=== PATIENT | female | born 1970 | race Caucasian/White ===

== ENCOUNTER → 2017-01-20 19:43 | Outpatient (CLI) | payer MEDICAID, BC ==
[2014-09-25 08:54] VITALS: BMI 23.8
[~2017-01-20 19:43] MED LIST: ALDACTONE100 MG PO; CYMBALTA60 MG PO; FORTAMET500 MG/BOT PO; HYDROCODONE-APA1 TAB PO; KEFLEX500 MG PO; MELATONIN 10 M1 EACH PO; MOBIC7.5 MG PO; NEURONTIN 300300 MG PO; PROMETRIUM200 MG PO; VOLTAREN75 MG PO; XANAX1 MG PO
== END | disposition home or self-care (01) ==
LOC: D.LABREF 19:43
DX: N64.52 Nipple discharge (principal); Z85.3 Personal history of malignant neoplasm of breast

== ENCOUNTER → 2017-02-11 09:44 | Outpatient (CLI) | payer MEDICAID, BC ==
[2014-09-25 08:54] VITALS: BMI 23.8
== END | disposition home or self-care (01) ==
LOC: D.US 02-08 09:30
DX: C50.111 Malignant neoplasm of central portion of right female breast (principal)

== ENCOUNTER → 2017-02-19 07:28 | Outpatient (CLI) | payer MEDICAID, BC ==
[2014-09-25 08:54] VITALS: BMI 23.8
== END | disposition home or self-care (01) ==
LOC: D.NM 02-12 10:00
DX: C50.111 Malignant neoplasm of central portion of right female breast (principal)

== ENCOUNTER 2017-03-23 05:15 | Day surgery (SDC) | payer MEDICAID, BC ==
[~2017-03-23] VITALS: Ht 157.5 cm; Wt 61.2 kg
[2017-03-23 06:26] LABS: BASOPHILS 0.3 % (0-2); EOSINOPHILS 1.2 % (0-7); HEMATOCRIT 39.7 % (36.0-48.0); HEMOGLOBIN 13.1 g/dL (12-16); IMMATURE GRANULOCYTES 0.2 % (0-5); LYMPHOCYTES 25.1 % (15-50); MCH 32.3 pg (26.0-34.0); MCV 97.8 fL (80.0-100.0); MEAN PLATELET VOLUME 10.1 fL (7.4-10.4); MONOCYTES 6.2 % (2-11); PLATELET COUNT 240 10x3/uL (130-400); RBC 4.06 10x6/uL (4.00-5.40); WBC 5.8 10x3/uL (4.8-10.8)
[2017-03-23 06:47] LABS: CALC OSMOLALITY 281 mosm/kg (275-300); CALCIUM 8.7 mg/dL (8.5-10.1); CARBON DIOXIDE 25.7 mmol/L (21.0-32.0); CHLORIDE - SERUM 107 mmol/L (98-107); CREATININE - SERUM 0.6 mg/dL (0.6-1.3); GLUCOSE 106 mg/dL (74-106); POTASSIUM - SERUM 3.7 mmol/L (3.5-5.1); SODIUM 141 mmol/L (136-145); UREA NITROGEN 15 mg/dL (7-18); eGFR NON AFRICAN AMERICAN > 90 mL/min (90-120)
[2017-03-23 06:51] LABS: INR 0.97 (0.85-1.17); PROTIME 12.7 SECONDS (11.6-15.0)
[2017-03-23 06:52] VITALS: BP 138/83; Ht 157.5 cm; Wt 61.2 kg
[2017-03-23 06:52] LABS: APTT 29.1 SECONDS (22.8-39.4)
[2017-03-23] MEDS ORDERED: HYDROCODONE-APA1 TAB PO (11:03)
--- NOTE | 2017-03-23 12:16 | NUR ---
1200 NORCO 10MG PO GIVEN FOR C/O 09/07. MULTIPLE FRIENDS AND FAMILY AT BEDSIDE. HOB ELEVATED. DENIES NAUSEA.
--- NOTE | 2017-03-30 14:51 | OP ---
PATIENT NAME: NICOLE ANDREW MEDICAL RECORD: [id number] :69 LOCATION:[facility] ADMISSION DATE: SURGEON: CARLOS NERI MD DATE OF OPERATION: 03/23/2017 PREOPERATIVE DIAGNOSES: 1. Paget disease of the right nipple. 2. History of ductal carcinoma in situ of the right breast. 3. Tobacco dependent syndrome. 4. Gastroesophageal reflux disease. 5. Diabetes mellitus. 6. Fibromyalgia. POSTOPERATIVE DIAGNOSES: 1. Paget disease of the right nipple. 2. History of ductal carcinoma in situ of the right breast. 3. Tobacco dependent syndrome. 4. Gastroesophageal reflux disease. 5. Diabetes mellitus. 6. Fibromyalgia. PROCEDURE: 1. Right partial mastectomy. 2. Right axillary sentinel lymph node biopsy. SURGEON: Carlos Neri MD REPORT OF PROCEDURE: The patient underwent lymphoscintigraphy preoperatively. The right breast and axilla were prepped and draped in sterile fashion. The skin incision was made in the right axilla and the electrocautery was used to dissect through the subcutaneous tissue into the axillary space. A Neoprobe was used to find the sentinel lymph node. We found a collection of 2-3 lymph nodes that were clumped together with the highest reading in any of these being 67. These 3 lymph nodes were removed and sent off for permanent specimen. Any bleeding that was in the area was treated with electrocautery or with free ties. At the end of this portion of the procedure, there was no sign of any active bleeding. The subcutaneous tissues were irrigated out and then the fascial edges were reapproximated with interrupted 3-0 Vicryls. The skin was closed with running subcutaneous 5-0 Monocryl. We then approached the patient's right breast. The patient had a history of a right nipple sparing simple mastectomy with reconstruction with a submuscular implant. An ovoid incision was made around the patient's nipple areolar complex in a transverse direction. The subcutaneous tissues were transected using electrocautery. We came underneath the tissue overlying the muscle. There was some thin scar tissue between the muscle layers and we got through this layer in 1 small portion and then there was a spillage of some gelatinous type fluid. I could see through this material and could see the implant and I did not see any evidence of injury to the implant itself and this dissection had been done completely with electrocautery. I went ahead and just irrigated out the space and reapproximated the overlying tissue using interrupted 3-0 Vicryls. The subcutaneous tissues were then reapproximated with interrupted 3-0 Vicryls and the skin was closed with running subcutaneous 5-0 Monocryl. The nipple areolar complex had been sent off for frozen specimen and the margins were noted to be negative for tumor. The wounds were then dressed appropriately. OPERATIVE REPORT [id number] NICOLE ANDREW COMPLICATIONS: None. CONDITION: Stable. ANESTHESIA: General endotracheal. BLOOD LOSS: 30 mL. TRANSINT:[id number] Voice Confirmation ID: [id number] DOCUMENT ID: [id number] CARLOS NERI MD at 1451 CC: BELKIS OCASIO MD and JANIS JHAVERI MD [id number] DICTATION DATE: 03/23/17 1110 HOTEL FRONT DESK AGENT: 03/23/17 1718 [facility] 03/23/17 [id number] [place] [address]
== END 2017-03-23 13:40 | disposition home or self-care (01) ==
LOC: D.OPS 05:15 → D.PAN 07:30 → D.OPS 13:40
PROVIDERS: Anesthesiology; Surgery
DX: C50.011 Malignant neoplasm of nipple and areola, right female breast (principal); D05.11 Intraductal carcinoma in situ of right breast; F17.200 Nicotine dependence, unspecified, uncomplicated; K21.9 Gastro-esophageal reflux disease without esophagitis; E11.9 Type 2 diabetes mellitus without complications; M79.7 Fibromyalgia; D24.1 Benign neoplasm of right breast

== ENCOUNTER → 2017-07-15 15:20 | Outpatient (CLI) | payer MEDICAID, BC ==
[2017-03-23 06:52] VITALS: BMI 24.7
== END | disposition home or self-care (01) ==
LOC: D.LABREF 15:20
DX: C50.011 Malignant neoplasm of nipple and areola, right female breast (principal); N64.4 Mastodynia

== ENCOUNTER → 2018-02-10 07:36 | Outpatient (CLI) | payer MEDICAID, BC ==
[2017-03-23 06:52] VITALS: BMI 24.7
[~2018-02-10 07:36] MED LIST changes: +ATIVAN0.5 MG PO; +LIPITOR10 MG PO; +TEMAZEPAM30 MG PO; +ZESTRIL10 MG PO; +ZOLOFT50 MG PO
== END | disposition home or self-care (01) ==
LOC: D.US 07:36
DX: C50.019 Malignant neoplasm of nipple and areola, unspecified female breast (principal)

== ENCOUNTER → 2018-02-17 12:11 | Outpatient (CLI) | payer MEDICAID, BC ==
[2017-03-23 06:52] VITALS: BMI 24.7
== END | disposition home or self-care (01) ==
LOC: D.CT 12:11
DX: N63.11 Unspecified lump in the right breast, upper outer quadrant (principal); Z85.3 Personal history of malignant neoplasm of breast; R93.8 Abnormal findings on diagnostic imaging of other specified body structures

== ENCOUNTER 2018-04-12 10:30 | Day surgery (SDC) | payer MEDICARE, MEDICAID ==
[2018-04-11 15:05] LABS: BASOPHILS 0.2 % (0-2); HEMATOCRIT 38.1 % (36.0-48.0); HEMOGLOBIN 12.9 g/dL (12-16); IMMATURE GRANULOCYTES 0.1 % (0-5); LYMPHOCYTES 31.6 % (15-50); MCH 31.9 pg (26.0-34.0); MCHC 33.9 g/dL (31.0-37.0); MCV 94.1 fL (80.0-100.0); MEAN PLATELET VOLUME 9.8 fL (7.4-10.4); MONOCYTES 6.2 % (2-11); NEUTROPHILS 60.9 % (40-80); PLATELET COUNT 252 10x3/uL (130-400); RBC 4.05 10x6/uL (4.00-5.40); RDW 12.4 % (11.5-14.5); WBC 9.4 10x3/uL (4.8-10.8)
[2018-04-11 15:11] LABS: INR 0.98 (0.85-1.17); PROTIME 12.6 SECONDS (11.6-15.0)
[2018-04-11 15:12] LABS: APTT 29.1 SECONDS (22.8-39.4)
[2018-04-11 15:15] LABS: CALC OSMOLALITY 271 mosm/kg (275-300); CALCIUM 8.9 mg/dL (8.5-10.1); CARBON DIOXIDE 26.2 mmol/L (21.0-32.0); CHLORIDE - SERUM 100 mmol/L (98-107); CREATININE - SERUM 0.7 mg/dL (0.6-1.3); GLUCOSE 100 mg/dL (74-106); POTASSIUM - SERUM 3.7 mmol/L (3.5-5.1); SODIUM 136 mmol/L (136-145); UREA NITROGEN 12 mg/dL (7-18); eGFR NON AFRICAN AMERICAN > 90 mL/min (90-120)
[~2018-04-12] VITALS: Ht 157.5 cm; Wt 69.4 kg
--- NOTE | ~2018-04-12 | OP ---
PATIENT NAME: NICOLE ANDREW MEDICAL RECORD: [id number] :69 LOCATION:[facility] ADMISSION DATE: SURGEON: CARLOS NERI MD DATE OF OPERATION: 04/12/2018 PREOPERATIVE DIAGNOSES: 1. History of bilateral mastectomies. 2. History of right breast cancer and right breast Paget's disease. 3. Diabetes mellitus. 4. Tobacco dependence. 5. Left nipple pain. POSTOPERATIVE DIAGNOSES: 1. History of bilateral mastectomies. 2. History of right breast cancer and right breast Paget's disease. 3. Diabetes mellitus. 4. Tobacco dependence. 5. Left nipple pain. PROCEDURE: Completion of left breast mastectomy. SURGEON: Carlos Neri MD REPORT OF PROCEDURE: The patient's left breast was prepped and draped in sterile fashion. The patient had had a previous nipple-sparing mastectomy with immediate reconstruction. An ovoid incision was made around the patient's nipple areolar complex. Electrocautery was used to dissect through the subcutaneous tissues down to the sheath overlying the patient's implant. Once we encountered the sheath and we unroofed the breast tissue off of the implant and marked it appropriately. This was sent off for permanent specimen. We then undermined the tissue in all directions and irrigated out the wound with normal saline. The subcutaneous tissues were reapproximated with interrupted 3-0 Vicryls and the skin was closed with yeimy. COMPLICATIONS: None. CONDITION: Stable. ANESTHESIA: General endotracheal. BLOOD LOSS: Minimal. TRANSINT:[id number] Voice Confirmation ID: [id number] DOCUMENT ID: [id number] CARLOS NEIR MD at 1031 CC: BELKIS OCASIO [id number] DICTATION DATE: 04/12/18 1354 REGISTERED NURSE HH CASE MANAGER: 04/12/18 1412 [facility] 04/12/18 [place] [id number] [place] [id number]
[2018-04-12 11:08] VITALS: BP 128/75; Ht 157.5 cm; Wt 69.4 kg
[2018-04-12] MEDS ORDERED: HYDROCODONE-APA1 TAB PO (13:49)
== END 2018-04-12 16:10 | disposition home or self-care (01) ==
LOC: D.SDCHOLD 10:30 → D.OPS 10:30 → D.SDCHOLD 12:45 → EDSTATUS 12:45 → D.SDCHOLD 16:10 → D.OPS 16:10
PROVIDERS: Anesthesiology
DX: C50.011 Malignant neoplasm of nipple and areola, right female breast (principal); Z85.3 Personal history of malignant neoplasm of breast; E11.9 Type 2 diabetes mellitus without complications; F17.200 Nicotine dependence, unspecified, uncomplicated

== ENCOUNTER → 2018-07-08 11:00 | Outpatient (CLI) | payer MEDICAID, MEDICARE ==
[2018-04-12 11:08] VITALS: BMI 28.0
== END | disposition home or self-care (01) ==
LOC: D.MRI 11:00
DX: M54.16 Radiculopathy, lumbar region (principal)

== ENCOUNTER → 2019-03-08 18:01 | Outpatient (CLI) | payer MEDICARE ==
[~2019-03-08 18:01] MED LIST changes: +ULTRAM50 MG PO; +ZOLOFT100 MG; -ZOLOFT50 MG PO
== END | disposition home or self-care (01) ==
LOC: D.LABREF 18:01
DX: N20.0 Calculus of kidney (principal)

== ENCOUNTER 2019-03-09 06:04 | Day surgery (SDC) | payer MEDICARE ==
[~2019-03-09] VITALS: Ht 157.5 cm; Wt 61.7 kg
[~2019-03-09 06:04] MED LIST changes: -ULTRAM50 MG PO
[2019-03-09 06:53] LABS: BASOPHILS 0.3 % (0-2); EOSINOPHILS 2.2 % (0-7); HEMATOCRIT 39.9 % (36.0-48.0); HEMOGLOBIN 13.3 g/dL (12-16); IMMATURE GRANULOCYTES 0.2 % (0-5); LYMPHOCYTES 23.3 % (15-50); MCH 32.1 pg (26.0-34.0); MCHC 33.3 g/dL (31.0-37.0); MCV 96.4 fL (80.0-100.0); MONOCYTES 4.3 % (2-11); NEUTROPHILS 69.7 % (40-80); PLATELET COUNT 268 10x3/uL (130-400); RBC 4.14 10x6/uL (4.00-5.40); RDW 13.6 % (11.5-14.5); WBC 8.8 10x3/uL (4.8-10.8)
[2019-03-09] MEDS ORDERED: ULTRAM50 MG PO (07:22)
[2019-03-09 07:43] VITALS: BP 139/85; Ht 157.5 cm; Wt 61.7 kg
--- NOTE | 2019-03-09 13:44 | OP ---
PATIENT NAME: NICOLE ANDREW MEDICAL RECORD: [id number] :69 LOCATION:D.OPS ADMISSION DATE: SURGEON: PK GUPTA MD DATE OF OPERATION: 03/09/2019 SURGEON: Pk Gupta MD ANESTHESIA: TIVA by Brant Corona CRNA. DIAGNOSIS: History of a right 5-mm ureteral stone. PROCEDURES: Cystoscopy, right retrograde pyelogram, right ureteroscopy, right ureteral stent insertion 6-Croatian x 22 cm with string attached. FINDINGS: No radiodense stone seen on fluoroscopy. Right hydroureteronephrosis to a point in the ureter overlying the sacrum. No stone seen on ureteroscopy. On cystoscopy, there were single ureteral orifices with no bladder tumors seen. The patient also has a grade II cystocele. BLOOD LOSS: None. SPECIMENS: None. CLINICAL HISTORY: This is a 48-year-old female with a previous history of kidney stones. She had a CT scan done recently for acute right-sided flank pain with nausea and vomiting. CT scan showed a 5-mm right distal ureteral stone. When she saw me in the office yesterday, she continued to have pain in the right flank even though it had been [address] scan had been done. Therefore, I scheduled her to have the stone removed by ureteroscopy. SHE IS ALLERGIC TO MORPHINE, SULFA AND ADHESIVE TAPE. She was given [employer] strategic solutions consultant to the OR today. Prior to the procedure, I had her obtain a KUB. I did not see any radiodense stones in the course of the ureter on the KUB, however, she continued to have pain and therefore I decided to proceed. We would first do a retrograde pyelogram and see if I can find a filling defect. DESCRIPTION OF PROCEDURE: The patient was given IV sedation. She was then placed into dorsal lithotomy position and prepped and draped. Cystoscopy found no bladder tumors. The right ureteral orifice was entered into with a cone tip catheter. Diluted contrast was injected for retrograde pyelogram on the right side. The right proximal ureter is hydronephrotic to the junction between the mid and distal one-third of the ureter. This was in the region overlying the mid sacrum. Here, the caliber of the ureter suddenly changed from hydronephrotic to normal. I did not see an obvious stone here, but I did have to investigate this area, which may just represent tissue edema. Through the lumen of the cone tip catheter, we inserted a Sensor wire up into the renal pelvis. Once the wire was in position, the ureteral catheter was removed entirely. Over the Sensor wire, we inserted the 21-Croatian x 4-cm ureteral dilation balloon. The right ureteral orifice was dilated to 14 atmospheres of pressure for a few seconds and then the balloon was deflated and removed entirely. We then removed the cystoscope, leaving the Sensor wire in place. We then followed the Sensor wire using a rigid ureteroscope. I followed the wire all the way up to the renal pelvis at the UP junction. At the site overlying the mid sacrum where we had seen the change in ureteral caliber, there was tissue edema. However, we did not see any stone at all. The ureteroscope was then removed entirely. We backloaded the sensor wire onto the cystoscope. OPERATIVE REPORT [id number] NICOLE ANDREW Through the cystoscope, we inserted the 6-Croatian x 22-cm ureteral stent. Once the stent was in correct position, we withdrew the wire entirely. The proximal end of the stent is coiled in the renal pelvis. The distal end of the stent was pushed into the bladder using a pusher. The bladder was then emptied through the cystoscope sheath and the scope was removed. The string on the distal end of the stent is maintained. It was taped to the suprapubic area with a small piece of Tegaderm. I will see her in followup next week to remove the stent by pulling on the string. TRANSINT:[id number] Voice Confirmation ID: [id number] DOCUMENT ID: [id number] PK GUPTA MD at 1344 CC: [id number] DICTATION DATE: 03/09/19 1125 MEDICAL ONCOLOGY PHYSICIAN: 03/09/19 1152 [facility] 03/09/19 [facility] [address] [place] [address]
== END 2019-03-09 13:30 | disposition home or self-care (01) ==
LOC: D.OPS 06:04
PROVIDERS: Anesthesiology; ATTEND Urology
DX: N13.30 Unspecified hydronephrosis (principal); N81.10 Cystocele, unspecified; Z88.5 Allergy status to narcotic agent; Z88.2 Allergy status to sulfonamides; Z01.812 Encounter for preprocedural laboratory examination; Z87.442 Personal history of urinary calculi

== ENCOUNTER 2019-04-14 08:00 | Outpatient (CLI) | payer MEDICARE ==
[2019-03-09 07:43] VITALS: Ht 157.5 cm; Wt 61.2 kg
[~2019-04-14] VITALS: Ht 157.5 cm; Wt 61.2 kg
[~2019-04-14 08:00] MED LIST changes: +ULTRAM50 MG PO
[2019-04-14] MEDS ORDERED: VOLTAREN75 MG PO (08:01)
[2019-04-14 08:34] LABS: BASOPHILS 0.3 % (0-2); EOSINOPHILS 1.5 % (0-7); HEMATOCRIT 38.3 % (36.0-48.0); HEMOGLOBIN 12.8 g/dL (12-16); IMMATURE GRANULOCYTES 0.1 % (0-5); LYMPHOCYTES 21.3 % (15-50); MCH 32.2 pg (26.0-34.0); MCHC 33.4 g/dL (31.0-37.0); MCV 96.5 fL (80.0-100.0); MEAN PLATELET VOLUME 9.5 fL (7.4-10.4); MONOCYTES 3.9 % (2-11); NEUTROPHILS 72.9 % (40-80); PLATELET COUNT 246 10x3/uL (130-400); RBC 3.97 10x6/uL (4.00-5.40); RDW 13.4 % (11.5-14.5); WBC 7.5 10x3/uL (4.8-10.8)
[2019-04-14 08:46] LABS: ANION GAP 13.7 mmol/L (8-16); CALCIUM 9.7 mg/dL (8.5-10.1); CARBON DIOXIDE 28.6 mmol/L (21.0-32.0); CREATININE - SERUM 0.9 mg/dL (0.6-1.3); POTASSIUM - SERUM 3.3 mmol/L (3.5-5.1)
[2019-04-14 09:14] LABS: APTT 34.7 SECONDS (22.8-39.4)
[2019-04-14 09:50] LABS: INR 0.98 (0.85-1.17); PROTIME 12.5 SECONDS (11.6-15.0)
== END 2019-04-14 08:01 | disposition home or self-care (01) ==
LOC: D.PAN 08:00 → D.OPS 04-17 10:00 → EDSTATUS 04-17 10:00 → D.PAN 04-17 10:50
PROVIDERS: Anesthesiology; ATTEND Obstetrics & Gynecology
DX: R10.2 Pelvic and perineal pain (principal); N83.209 Unspecified ovarian cyst, unspecified side; Z85.3 Personal history of malignant neoplasm of breast

== ENCOUNTER 2019-04-21 06:35 | Day surgery (SDC) | payer MEDICARE ==
[2019-04-21 10:01] VITALS: BP 121/89; BMI 24.7
--- NOTE | 2019-04-21 14:30 | NUR ---
REC'D FROM RR. FRIEND AT BEDSIDE. DRESSING CDI TO SURGICAL INCISIONS. FL TRAY BROUGHT TO PATIENT. NO URGE TO VOID.
--- NOTE | 2019-04-21 15:00 | NUR ---
TOLERATING FL DIET. DENIES NEED TO VOID WHEN ASKED.
--- NOTE | 2019-04-21 15:45 | NUR ---
PATIENT DRINKING FLUIDS. ASKED WHEN SHE COULD GO HOME. EXPLAINED TO PATIENT SHE HAS TO BE ABLE TO URINATE BEFORE DC. ASSISTED PATIENT TO BATHROOM AND PT WAS ABLE TO VOID.
--- NOTE | 2019-04-21 15:50 | NUR ---
IV DC'D WITH CATHETER INTACT.
--- NOTE | 2019-04-21 15:55 | NUR ---
WRITTEN AND VERBAL DC INST. GIVEN TO PT ALONG WITH RX. VERBALIZED UNDERSTANDING.
--- NOTE | 2019-04-21 16:15 | NUR ---
DC'D HOME WITH FAMILY VIA PRIVATE VEHICLE. TAKEN TO VEHICLE VIA WC. STABLE AT TIME OF DC.
--- NOTE | 2019-04-28 12:22 | OP ---
PATIENT NAME: NICOLE ANDREW MEDICAL RECORD: [id number] :68 LOCATION:D.OPS ADMISSION DATE: SURGEON: ROSALIA BARRETT MD DATE OF OPERATION: 04/21/2019 PREOPERATIVE DIAGNOSES: 1. Pelvic pain. 2. History of ovarian cyst. POSTOPERATIVE DIAGNOSES: 1. Pelvic pain. 2. History of ovarian cyst. PROCEDURE: 1. Diagnostic laparoscopy. 2. Lysis of adhesions. 3. Bilateral salpingo-oophorectomy. SURGEON: Rosalia Barrett MD CAMPUS WELLNESS COORDINATOR: Isaac Hernandez. ANESTHESIOLOGIST: Dr. Moreno. ANESTHESIA: General. FINDINGS: Ovaries are adhesed to the sidewalls. There is also omental and small bowel adhesions across the lower pelvis. Left ovary has multiple small follicles. The right ovary has also with multiple follicles . What was visualized of the abdominal anatomy is unremarkable. SPECIMENS REMOVED: Bilateral tubes and ovaries. SPECIMEN DISPOSITION: All specimens to pathology. ESTIMATED BLOOD LOSS: Less than 50 cc. FLUIDS: 500 cc lactated Ringer's. URINE OUTPUT: 250 cc of clear urine. COMPLICATIONS: None. DRAINS: Lazcano to gravity discontinued. INDICATIONS: The patient is a 48-year-old female with persistent pelvic pain, and on ultrasound multiple small cysts. The patient is consented for bilateral salpingo-oophorectomy. The risks, benefits and limitations of this procedure have been described as well as the likelihood of post-menopausal symptoms. Women's Health Initiative has also been discussed. DESCRIPTION OF PROCEDURE: After informed consent was assured, the patient was taken to the operating room where anesthetic was obtained. The patient is now prepped and draped. Incisions made with the umbilicus to accommodate a 5-mm trocar. Accessory trocars were now placed in the midline, right lower quadrant. OPERATIVE REPORT [id number] NICOLE ANDREW Through the right lower quadrant port, a coagulation cutter was inserted. With the adhesions elevated from the midline, they are now taken down with a coagulation cutter as well as EndoShears. After the adhesions of the small bowel and omentum to the left side wall has been taken down. Ovaries elevated and the adhesions of the ovary to the pelvic sidewall are taken down sharply and the infundibulopelvic ligament was then serially compressed, coagulated, and . The left ovary and tubes placed in the cul-de-sac. The dissection now begins on the right. With the grasper continued to be inserted from the midline and the coagulation cutter from the right lower quadrant port, the adhesions were taken down of the omentum to the right ovary. The right ovary was now elevated and the infundibulopelvic ligament serially compressed, coagulated, and . The dissection was carried out lateral to the ovary along the sidewall and the right ovary and tube was now placed in the cul-de-sac. An Endobag was now placed into the pelvis. Both ovaries are retrieved. The pelvis was irrigated, irrigant removed and the surgical site inspected and found to be hemostatic. Pneumoperitoneum was released as the accessory trocars were removed. After release of the complete pneumoperitoneum, the primary trocars were removed. All sites were closed with a subcuticular stitch. Sponge, lap, needle counts were correct times 2. TRANSINT:[id number] Voice Confirmation ID: [id number] DOCUMENT ID: [id number] ROSALIA BARRETT MD at 1222 CC: [id number] DICTATION DATE: 04/28/19824 MARBLE POLISHER HAND: 04/28/19 0851 [facility] 04/21/19 [facility] [address] [place] [address]
== END 2019-04-21 16:15 | disposition home or self-care (01) ==
LOC: D.OPS 06:35
PROVIDERS: ATTEND Obstetrics & Gynecology
DX: N73.6 Female pelvic peritoneal adhesions (postinfective) (principal); N83.02 Follicular cyst of left ovary; N83.01 Follicular cyst of right ovary; Z01.812 Encounter for preprocedural laboratory examination